=== PATIENT | male | born 1995 ===

== ENCOUNTER 2018-03-02 18:13 | Emergency (ER) | payer SELFPAY ==
[2018-03-02] MEDS ORDERED: Tetan/Diph/Pertus SYR(Tdap)* 0.5 ML SYR(BOOSTRIX) use SYR IM ONE (18:42)
--- NOTE | 2018-03-02 18:50 | UC ---
Purvi Knapp Emily, scribed for Karan Salinas MD on 03/02/18 at 1844 . Laceration HPI - HPI Summary HPI Summary: This patient is a 23 year old M presenting to urgent care with a chief complaint of laceration to R hand that occurred around 1600 today. Pt reports that he cut his R hand on a piece of metal. He states that he cleaned the laceration with alcohol and applied abx ointment before supergluing it together. Pt denies any concern of there being any foreign body in the laceration. The patient rates the pain 0/10 in severity. Symptoms aggravated by nothing. Symptoms alleviated by nothing. - History Of Current Complaint Chief Complaint: UCLaceration Stated Complaint: HAND LACERATION Time Seen by Provider: 03/02/18 18:26 Hx Obtained From: Patient Laceration Location: Hand Mechanism Of Injury: Sharp Trauma Onset/Duration: Sudden Onset Severity: Mild Pain Intensity: 0 Pain Scale Used: 0-10 Numeric Aggravating Factors: Nothing - Allergies/Home Medications Allergies/Adverse Reactions: Allergies Allergy/AdvReac Type Severity Reaction Status Date / Time No Known Allergies Allergy Verified 03/02/18 18:21 PMH/Surg Hx/FS Hx/Imm Hx Previously Healthy: Yes Endocrine History: Other Other Endocrine History: Negative diabetes Respiratory History: Other Other Respiratory History: Negative asthma - Surgical History Surgical History: Yes Surgery Procedure, Year, and Place: 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 - Family History Known Family History: Positive: Cardiac Disease, Diabetes - Social History Occupation: Employed Full-time Lives: Alone Alcohol Use: None Substance Use Type: None Smoking Status (MU): Never Smoked Tobacco - Immunization History Most Recent Tetanus Shot: 10 years ago Review of Systems Skin: Other - Positive laceration to R hand Gastrointestinal: Other - Negative nausea All Other Systems Reviewed And Are Negative: Yes Physical Exam - Summary Physical Exam Summary: General: well-appearing, no pain distress Skin: warm, color reflects adequate perfusion, dry, 2 cm laceration to the palm of the R hand, which is not bleeding and has been glued shut Head: normal Eyes: EOMI, KEVIN ENT: normal Neck: supple, nontender Respiratory: CTA, breath sounds present Cardiovascular: RRR Abdomen: soft, nontender Bowel: present Musculoskeletal: normal, strength/ROM intact, No erythema, full strength, nml sensation, and nml ROM. Neurological: normal, sensory/motor intact, A&O x3 Psychological: affect/mood appropriate Triage Information Reviewed: Yes Vital Signs: Initial Vital Signs Temp 99.2 F 03/02/18 18:21 Pulse 78 03/02/18 18:21 Resp 18 03/02/18 18:21 BP 129/75 03/02/18 18:21 Pulse Ox 100 03/02/18 18:21 Vital Signs Reviewed: Yes Laceration Course/Dx - Course/Dx Course Of Treatment: Medications reviewed. Allergies reviewed. PATIENT ALREADY CLEANED AND GLUED THE WOUND. DENIES C/O OF FB. WISHES A TETANUS SHOT. RX KEFLEX IN CASE OF SIGNS OF INFECTION. F/U PMD OR RETURN IF NOT COMPLETELY IMPROVED. - Differential Dx - Laceration/Wound Provider Diagnoses: RIGHT HAND LACERATION Discharge - Sign-Out/Discharge Documenting (check all that apply): Discharge - Discharge Plan Condition: Stable Disposition: HOME Prescriptions: Cephalexin CAP* [Keflex CAP*] 500 mg PO QID #28 cap Patient Education Materials: Laceration (ED) Referrals: [facility] [Outside] Additional Instructions: FOLLOW UP WITH YOUR DOCTOR IF NOT COMPLETELY IMPROVED. START THE ANTIBIOTICS FOR ANY SIGN OF INFECTION. YOU GOT YOUR TDAP IMMUNIZATION TODAY. GET RECHECKED FOR ANY WORSENING OF YOUR CONDITION OR QUESTIONS OR CONCERNS. - Billing Disposition and Condition Condition: STABLE Disposition: HOME The documentation as recorded by the Purvi rojo Emily accurately reflects the service I personally performed and the decisions made by me, Karan Salinas MD.
== END 2018-03-02 18:59 | disposition home or self-care (01) ==
LOC: UCEAST 18:13
DX: S61.411A Laceration without foreign body of right hand, initial encounter (principal); W45.8XXA Other foreign body or object entering through skin, initial encounter; Y93.9 Activity, unspecified; Y92.9 Unspecified place or not applicable; Z23 Encounter for immunization
CPT/HCPCS: 12001; 90471; 90715; 99202; G0463